=== PATIENT | female | born 1945 | race Caucasian/White ===

== ENCOUNTER → 2016-06-26 | Outpatient (CLI) | payer MEDICARE, OTHER ==
[~2016-06-26] MED LIST: ALBU18HF INHALATION; AZIT250T94 PO; BARIUM SULFATE 135 ML (E-Z HD) PO ONE; BECL8.7A INH; BENZ-5 PO; BENZ100C70 PO; CARV3.1260 PO; CELE200C PO; LEVO25TA53 PO; [UNRECOGNIZED DRUG - REMARK]
--- NOTE | 2016-06-26 15:33 | RADRPT ---
PROCEDURE: Video-fluoroscopy swallowing study. CLINICAL INDICATION: Dysphagia. TECHNIQUE: Fluoroscopic guided video swallowing study was done in conjunction with the speech ther apist. The study was confined to the oral, pharyngeal, and cervical phases of the swallowing mechani sm. 2.7 minutes of fluoroscopy time was used. COMPARISON: No prior study is available for comparison. FINDINGS: There is no evidence of aspiration during the exam. There may be a pooling of contrast in the esopha иван. IMPRESSION: 1. No aspiration during swallowing. 2. Possible abnormal esophageal motility. Correlation with endoscopy or esophagogram should be con sidered. 3. Please refer to the speech therapist's recommendations for future feedings. RPTAT: QQ .Ramon Andrade MD, MD Date Time Electronically viewed and signed by .Ramon Andrade MD, on 06/26/2016 15:32 .R/
== END | disposition home or self-care (01) ==
LOC: RAD 10:59
PROVIDERS: ATTEND Internal Medicine
DX: R05 Cough (principal); R13.10 Dysphagia, unspecified
CPT/HCPCS: 74230; 92611; G8996; G8997; G8998

== ENCOUNTER → 2016-08-08 | Outpatient (CLI) | payer MEDICARE, OTHER ==
[~2016-08-08] MED LIST changes: -BARIUM SULFATE 135 ML (E-Z HD) PO ONE
--- NOTE | 2016-08-08 18:23 | RADRPT ---
PROCEDURE: CT Chest without contrast. CLINICAL INDICATION: Cough. TECHNIQUE: A CT scan of the chest without contrast was performed. Coronal and sagittal reformatted images were obtained from the axial source images. CTDIvol: 3.60 mGy. DLP: 130.19 mGy-cm. One or more of the following dose reduction techniques were used: - Automated exposure control. - Adjustment of the mA and/or kV according to patient size. - Use of iterative reconstruction technique. COMPARISON: None. FINDINGS: There are mild to moderate fibrotic changes in both lungs, most prominent in the lung bases as well as in the left upper lobe and lingula, where there is associated bronchiectasis. Subtle additional patchy ground-glass opacities are noted in both lung apices, right more than left. There is no pleu ral effusion or pneumothorax. There is no suspicious thyroid lesion. There are a few borderline enlarged anterior and middle medi astinal lymph nodes. The trachea and mainstem bronchi are patent. The heart is not enlarged. Ther e is no pericardial effusion. There are minimal arterial calcifications. Limited evaluation of the upper abdomen is unremarkable. There is no suspicious osseous lesion. IMPRESSION: 1. Mild to moderate pulmonary fibrosis, most prominent in the lung bases as well as in the left upp er lobe and lingula, where there is associated bronchiectasis. 2. Subtle additional patchy ground-glass opacities in both lung apices, right more than left. Thes e probably relates interstitial lung disease, however a superimposed infectious process cannot be ex cluded. 3. A few borderline enlarged anterior and middle mediastinal lymph nodes, nonspecific. RPTAT: HTAR .Tank Torrez MD, MD Date Time Electronically viewed and signed by .Tank Torrez MD, MD on 08/08/2016 18:23 .R/
== END | disposition home or self-care (01) ==
LOC: C/S 09:25
PROVIDERS: ATTEND Internal Medicine Infectious Disease
DX: R05 Cough (principal); J84.10 Pulmonary fibrosis, unspecified; R59.9 Enlarged lymph nodes, unspecified
CPT/HCPCS: 71250

== ENCOUNTER → 2017-01-24 | Outpatient (CLI) | payer MEDICARE, OTHER ==
[2017-01-24 12:32] LABS: BASOPHIL # 0.1 10^3/ul (0.0-0.1); EOSINOPHILS # 0.3 10^3/ul (0.0-0.5); EOSINOPHILS % 4.3 % (0.0-7.0); HEMATOCRIT 36.3 % (37.0-47.0); HEMOGLOBIN 12.1 g/dl (12.0-16.0); LYMPHOCYTES # 2.7 10^3/ul (0.8-2.9); LYMPHOCYTES % 34.3 % (15.0-51.0); MEAN CORPUSCULAR HEMOGLOBIN 32.1 pg (29.0-33.0); MEAN CORPUSCULAR HGB CONC 33.3 g/dl (32.0-37.0); MEAN CORPUSCULAR VOLUME 96.3 fl (82.0-101.0); MEAN PLATELET VOLUME 10.5 fl (7.4-10.4); MONOCYTE # 0.6 10^3/ul (0.3-0.9); MONOCYTES % 7.3 % (0.0-11.0); PLATELET COUNT 206 10^3/UL (140-415); RED BLOOD COUNT 3.77 10^6/ul (4.20-5.40); RED CELL DISTRIBUTION WIDTH 13.4 % (11.5-14.5); WHITE BLOOD COUNT 7.9 10^3/ul (4.8-10.8)
== END | disposition home or self-care (01) ==
LOC: LAB 11:22
PROVIDERS: ATTEND Internal Medicine Pulmonary Disease
DX: Z87.09 Personal history of other diseases of the respiratory system (principal)
CPT/HCPCS: 85025; 87070

== ENCOUNTER → 2017-09-15 | Outpatient (CLI) | END | disposition home or self-care (01) ==

== ENCOUNTER 2017-11-28 20:18 | Inpatient (IN) | END 2017-12-02 21:05 | disposition home health service (06) | DRG 196 ==

== ENCOUNTER 2018-01-13 13:31 | Inpatient (IN) | END 2018-01-18 16:33 | DRG 291 ==

== ENCOUNTER 2018-04-09 09:07 | Inpatient (IN) | END 2018-04-14 20:43 | DRG 871 ==